=== PATIENT | female | born 1960 | race Caucasian/White ===

== ENCOUNTER 2024-07-13 09:21 | Outpatient (AMB) | payer OTHER, SELFPAY ==
--- NOTE | 2024-07-13 09:24 | MHC.PC.OV ---
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 Accompanied by: Self / Same As Patient Allergies codeine Allergy (Unknown, Verified 07/13/24 09:25) Unknown Tobacco use date assessed: 07/13/24 Fall risk assessment: No Falls in past year Last assessed Fall Risk: 07/13/24 Dental Screening Dental Screen Date: 07/13/24 Did you have a dental visit in the last 12 months?: Yes Did you have a dental problem in the last 6 months where you did not have access to dental care?: No HPI HPI Comments History of Present Illness Details The patient is a 63 year old female with a past medical history of abnormal tft, hypothyroid, hyperlipidemia, cervicalgia, OA, hld presenting for follow up Increased neck and low back pain. Requesting xrays. is a chiropractor. OA multiple joints. Sees Dr St[facility] History of osteopenia. Takes vitamin D and calcium Colonoscopy 2023 Sees collision worker. Mammo utd ROS CONSTITUTIONAL: Denies weight loss, fever and chills. HEENT: Denies changes in vision and hearing. RESPIRATORY: Denies SOB and cough. CV: Denies palpitations and CP GI: Denies abdominal pain, nausea, vomiting and diarrhea. : Denies dysuria and urinary frequency. MSK: Denies new myalgia and joint pain. SKIN: Denies rash and pruritus. NEUROLOGICAL: Denies headache PSYCHIATRIC: Denies recent changes in mood. PHYSICAL EXAM: GENERAL: Alert and oriented x 3. NAD EYES: EOMI. Anicteric. HENT: Moist mucous membranes. No scleral icterus. No cervical lymphadenopathy. LUNGS: Clear to auscultation bilaterally. CARDIOVASCULAR: Regular rate and rhythm. No murmur. No JVD. ABDOMEN: Soft, non-tender +bs EXTREMITIES: No edema. Non-tender. SKIN: No rashes or lesions. Warm. NEUROLOGIC: No focal neurological deficits. CN II-XII grossly intact PSYCHIATRIC: Cooperative. Appropriate mood and affect [facility] Family History Mother No problems noted. Father No problems noted. Social History Housing: House Patient Tobacco Use Status: Never used Tobacco e-Cigarette/Vaping Use: Never Used service: No Current occupational status: employed Cognitive needs: No Hearing needs: No Vision needs: Yes (rx glasses) Questionnaire PHQ-9 Over the last 2 weeks, how often have you been bothered by any of the following problems? 1. Little interest or pleasure in doing things: not at all 2. Feeling down, depressed, or hopeless: not at all 3. Trouble falling or staying asleep, or sleeping too much: not at all 4. Feeling tired or having little energy: not at all 5. Poor appetite or overeating: not at all 6. Feeling bad about yourself - or that you are a failure or have let yourself or your family down: not at all 7. Trouble concentrating on things, such as reading the newspaper or watching television: not at all 8. Moving or speaking so slowly that other people could have noticed. Or the opposite - being so fidgety or restless that you have been moving around a lot more than usual: not at all 9. Thoughts that you would be better off or of hurting yourself in some way: not at all Total score: 0 Depression Screening Interpretation: Negative Depression Screening Done: Yes [id number] - PHQ-9 Billing: Yes Source: Developed by Drs. Trell Zheng, Jazlyn Tran, Fazal Whitt and colleagues, with an educational tiki from [employer]. Thrive Questionnaire Date Thrive assessed: 07/13/24 I am a: Patient Within the past 12 months, did the food you bought not last and you didn't have the money to get more?: Never true Within the past 12 months, did you worry whether your food would run out before you got money to buy more?: Never true Do you have trouble paying for medicines?: No Do you have trouble getting transportation to medical appointments?: No Do you have trouble paying your heating and electricity bill?: No Do you have trouble taking care of your child, family member or friend?: No Do you have trouble with day-to-day activities such as bathing, preparing meals, shopping, managing finances, etc.?: No Are you currently unemployed and looking for a job?: No Are you interested in more education?: No THRIVE Score: 0 AUDIT C Alcohol Use Questionnaire (AUDIT-C) 1. How often do you have a drink containing alcohol?: Monthly or less 2. How many drinks containing alcohol do you have on a typical day when you are drinking?: 1 or 2 3. How often do you have six or more drinks on one occasion?: Less than monthly Total Score: 2 JESUS-7 AMB Questionnaire JESUS-7 Date JESUS - 7 assessed: 07/13/24 Feeling nervous, anxious, or on edge: 0 = Not at all Not being able to stop or control worryin = Not at all Worrying too much about different things: 0 = Not at all Trouble relaxin = Not at all Being so restless that it is hard to sit still: 0 = Not at all Becoming easily annoyed or irritable: 0 = Not at all Feeling afraid as if something awful might happen: 0 = Not at all Total JESUS-7 score (0-4 normal; 5-9 mild; 10-14 moderate; 15-21 severe): 0 Source: Developed by Drs. Trell Zheng, Jazlyn Tran, Fazal Whitt and colleagues, with an educational tiki from [employer]. Physical exam (Primary Care) Vital Signs: Last Vital Signs Temp 97.5 F 07/13/24 09:25 Pulse 69 07/13/24 09:25 BP 122/70 07/13/24 09:25 Pulse Ox 99 07/13/24 09:25 Oxygen Delivery Method Room Air 07/13/24 09:25 BMI result Body Mass Index 23.4 Tobacco/Smoking Status: Tobacco use Status Tobacco use date assessed 07/13/24 07/13/24 09:27 Patient Tobacco Use Status Never used Tobacco 07/13/24 09:27 e-Cigarette/Vaping Use Never Used 07/13/24 09:27 PHQ-9: PHQ-9 Score PHQ-9: Total score 0 07/13/24 09:27 Depression Screening Interpretation: Negative Thrive Assessment: Date of Thrive Assessment Date Thrive assessed 07/13/24 07/13/24 09:34 Coding Level of Care Code New Pt Level 4 (86759) Complex EM visit Add On G2211 Diagnoses Screening for metabolic disorder Z13.228 Screening for hyperlipidemia Z13.220 Screening for deficiency anemia Z13.0 Bilateral low back pain without sciatica, unspecified chronicity M54.50 Chronicity: unspecified Back pain laterality: bilateral Sciatica presence: without sciatica Neck pain M54.2 Additional Codes PHQ-9 - 62671 - PHQ-9 Billing: Yes ([id number]) Assessment & Plan Assessment & Plan (1) Screening for metabolic disorder: Code(s): Z13.228 - Encounter for screening for other metabolic disorders Category: Medical (2) Screening for hyperlipidemia: Code(s): Z13.220 - Encounter for screening for lipoid disorders Category: Medical (3) Screening for deficiency anemia: Code(s): Z13.0 - Encounter for screening for diseases of the blood and blood-forming organs and certain disorders involving the immune mechanism Category: Medical (4) Low back pain: Code(s): M54.50 - Low back pain, unspecified Category: Medical Qualifiers: Chronicity: unspecified Back pain laterality: bilateral Sciatica presence: without sciatica Qualified Code(s): M54.50 - Low back pain, unspecified (5) Neck pain: Code(s): M54.2 - Cervicalgia Category: Medical Plan 64 to establish care Past medical , surgical, social & family reviewed No rx meds Labs ordered. Xrays ordered Orders: Orders XR cervical spine 4V Today M54.2 - Cervicalgia XR lumbar spine 2-3V Today M54.2 - Cervicalgia, M54.50 - Low back pain, unspecified Complete Blood Count Auto Diff Today M54.2 - Cervicalgia, M54.50 - Low back pain, unspecified, Z13.0 - Encounter for screening for diseases of the blood and blood-forming organs and certain disorders involving the immune mechanism, Z13.220 - Encounter for screening for lipoid disorders, Z13.228 - Encounter for screening for other metabolic disorders Comprehensive Met. Panel Today M54.2 - Cervicalgia, M54.50 - Low back pain, unspecified, Z13.0 - Encounter for screening for diseases of the blood and blood-forming organs and certain disorders involving the immune mechanism, Z13.220 - Encounter for screening for lipoid disorders, Z13.228 - Encounter for screening for other metabolic disorders Lipid Panel Today M54.2 - Cervicalgia, M54.50 - Low back pain, unspecified, Z13.0 - Encounter for screening for diseases of the blood and blood-forming organs and certain disorders involving the immune mechanism, Z13.220 - Encounter for screening for lipoid disorders, Z13.228 - Encounter for screening for other metabolic disorders Erythrocyte Sedimentation Rate Today M54.2 - Cervicalgia, M54.50 - Low back pain, unspecified, Z13.0 - Encounter for screening for diseases of the blood and blood-forming organs and certain disorders involving the immune mechanism, Z13.220 - Encounter for screening for lipoid disorders, Z13.228 - Encounter for screening for other metabolic disorders TSH reflex Free T4 Today M85.80 - Other specified disorders of bone density and structure, unspecified site, R94.6 - Abnormal results of thyroid function studies Rheumatoid Factor Today M54.2 - Cervicalgia, M54.50 - Low back pain, unspecified, Z13.0 - Encounter for screening for diseases of the blood and blood-forming organs and certain disorders involving the immune mechanism, Z13.220 - Encounter for screening for lipoid disorders, Z13.228 - Encounter for screening for other metabolic disorders Lyme IgG/IgM w/reflex to WB Today M54.2 - Cervicalgia, M54.50 - Low back pain, unspecified, Z13.0 - Encounter for screening for diseases of the blood and blood-forming organs and certain disorders involving the immune mechanism, Z13.220 - Encounter for screening for lipoid disorders, Z13.228 - Encounter for screening for other metabolic disorders Vitamin D 25-OH (D2 and D3) Today M85.80 - Other specified disorders of bone density and structure, unspecified site, R94.6 - Abnormal results of thyroid function studies
[2024-07-13 09:25] VITALS: BP 122/70; PULSE 69; TEMP 36.4; O2SAT 99; BMI 23.4
--- OUTSIDE RECORDS SUMMARY | 2024-07-13 09:44 | XMS_ITS | Clinical Summary ---
Author Organization [facility] Address [address] [place] [address] Phone Care Team Providers Care Check And Transfer Beader Name Role Phone Unavailable Primary Care Provider Unavailabl e Social History Tobacco Use Types Packs/Day Years Used Date Smoking Tobacco: Never Assessed Comments Unknown Sex and Gender Information Value Date Recorded Sex Assigned at Not on file Legal Sex Female 8:12 PM EST Gender Identity Not on file Sexual Orientation Not on file Plan of Treatment Health Maintenance Due Date Last Done Comments DTaP,Tdap,and Td Vaccines (1 - Tdap) 1978 Cervical Cancer Screening: P ap Smear 1980 Pneumococcal Vaccine: 50+ Ye ars (1 of 1 - PCV) 2009 Zoster Vaccines (1 of 2) 2009 Breast Cancer Screening 04/12/2020 04/12/2018 COVID-19 Vaccine ( - 2023-2 5 season) 2023 Depression Screening 01/10/2024 Hepatitis C Screening 01/10/2024 Osteoporosis Screening (Bone Density Screening) 01/10/2024 Social Influencers of Health Screening 01/10/2024 Falls Risk Assessment 2024 Influenza Vaccine (Season Ended) 2024 Colorectal Cancer Screening: Colonoscopy 02/15/2034 02/16/2024 RSV Immunization Adult Patie nts (1 - 1-dose 75+ series) 2034 HIB Vaccines Aged Out No longer eligi ble based on patient's age to complete this topic HPV Vaccines Aged Out No longer eligi ble based on patient's age to complete this topic Hepatitis A Vaccines Aged Out No long er eligible based on patient's age to complete this topic Hepatitis B Vaccines Aged Out No long er eligible based on patient's age to complete this topic IPV Vaccines Aged Out No longer eligi ble based on patient's age to complete this topic MMR Vaccines Aged Out No longer eligi ble based on patient's age to complete this topic Meningococcal ACWY Vaccine Aged Out N o longer eligible based on patient's age to complete this topic Meningococcal B Vaccine Aged Out No l onger eligible based on patient's age to complete this topic Pneumococcal Vaccine: Pediat rics (0 to 5 Years) and At-Risk Patients (6 to 64 Years) Aged Out No longer eligi ble based on patient's age to complete this topic RSV Immunization Patients Un phyllis 20 months Aged Out No longer eligible b ased on patient's age to complete this topic Varicella Vaccines Aged Out No longer eligible based on patient's age to complete this topic Procedures Procedure Name Priority Date/Time Associated Diagnosis Comments COLONOSCOPY Routine 02/16/2024 9:23 AM EST JULIO C SCREENING DIGITAL Routine 04/12/2018 9:37 AM EST Encounter for screening mammogram for malignant neoplasm of breast from Last 3 Months or Most Recently Relevant to Health Maintenance Results * COLONOSCOPY (02/16/2024 9:23 AM EST) Anatomical Region Laterality Modality Endoscopy us Historical Provider GI~PROCEDURE ORDERABLES F inal Result * JULIO C SCREENING DIGITAL (04/12/2018 9:37 AM EST) Anatomical Region Laterality Modality Mammography 03/30/2018 10:0 4 AM EST Narrative 04/12/2018 9:37 AM EST [facility] Diagnostic Imaging Department [address] [place] [address] Patient: ??MIRZA BUTTERFIELD ?/Age/Sex: 1960 - 58 - F Unit#: ??[id number] ? Location/Status: ??SPDIMAM/REG CLI ? Mnemonic/Ordering Site: ??DIGSC/SPMAM Ordering Physician: ??CIRILO POMPA MD Julio C Screening Digital - 03/30/18 - 1024 ADDENDUM Patient is unable to return to [facility] for diagnostic mammography due to insurance constraints. Follow-up imaging obtained at [facility]. Findings reportedly reassuring with follow-up recommended to document stability (BI-RADS Category 3). Addendum Dictated By: ??SHARAD GAINES MD Addendum Esigned by: SHARAD GAINES MD Dictated: 04/12/1812/22/935 Signed:04/12/18936 ORIGINAL REPORT History: Breast cancer screening. Technique: ?? Bilateral digital mammography. Conventional CC and MLO projections with tomosynthesis MLO views and computer aided detection. Comparison: [facility] 03/11/2017, 03/21/2016, 01/14/2016, 10/30/2014 and multiple preceding studies dating back to 2004. Findings: ?? Breast tissue consists of mostly fatty tissue, category a density. Oval 4.5 mm discrete asymmetry within the central right breast just lateral to the nipple line as revealed on CC projection represents a new finding. No definite change, however, noted in the MLO projection. Stable anterior subareolar asymmetries. Mid right breast asymmetry projecting just below the nipple line on tomography is also identified on previous tomography. No architectural distortion, suspicious grouping of calcification within either breast or new asymmetry on the left. Impression: 4.5 mm rounded asymmetry central right breast as revealed on CC projection is incompletely evaluated. Recommend diagnostic mammography to include spot compression view right cc projection centered over area of concern as well as CC projection tomography. Patient will be contacted directly to arrange for supplementary imaging. BIRADS Category 0: Incomplete. Needs further imaging evaluation, 3340F [id number], [address]26 Patient information entered into a reminder system with a target date for the next mammogram. PQRI [id number] Dictating Physician: ??SHARAD GAINES MD Electronically Signed by: ??SHARAD GAINES MD Dic Date/Time: ??03/30/18 1633 Sign date/Time: ??03/30/18 9762 Procedure Note Sharad Gaines MD - 03/24/2022 [facility] Diagnostic Imaging Department [address] [place] [address] Patient: MIRZA BUTTERFIELD Hayden OrrB./Age/Sex: 1960 - 58 - F Unit#: [id number] [facility] Ordering Physician: CIRILO POMPA MD Julio C Screening Digital - 03/30/18 - 1024 ADDENDUM Patient is unable to return to [facility] for diagnosticmammography due to insurance constraints. Follow-up imaging obtained at [facility]. Findings reportedly reassuring with follow-up recommended todocument stability (BI-RADS Category 3). Addendum Dictated By: SHARAD GAINES MD Addendum Esigned by: SHARAD GAINES MD Dictated: 04/12/1812/22/935 Signed:04/12/18936 ORIGINAL REPORT History: Breast cancer screening. Technique: Bilateral digital mammography. Conventional CC and MLOprojections with tomosynthesis MLO views and computer aided detection. Comparison: [facility] 03/11/2017, 03/21/2016, 01/14/2016,10/30/2014 and multiple preceding studies dating back to 2004. Findings: Breast tissue consists of mostly fatty tissue, category adensity. Oval 4.5 mm discrete asymmetry within the central right breast justlateral to the nipple line as revealed on CC projection represents a new finding.No definite change, however, noted in the MLO projection. Stable anterior subareolar asymmetries. Mid right breast asymmetry projecting just belowthe nipple line on tomography is also identified on previous tomography. No architectural distortion, suspicious grouping of calcification withineither breast or new asymmetry on the left. Impression: 4.5 mm rounded asymmetry central right breast as revealed onCC projection is incompletely evaluated. Recommend diagnostic mammographyto include spot compression view right cc projection centered over area ofconcern as well as CC projection tomography. Patient will be contacted directly to arrange for supplementary imaging. BIRADS Category 0: Incomplete. Needs further imaging evaluation, 3340F [id number], [address]221 Patient information entered into a reminder system with a target date forthe next mammogram. PQRI [id number] Dictating Physician: SHARAD GAINES MD Electronically Signed by: SHARAD GAINES MD Dic Date/Time: 03/30/18 1635 Sign date/Time: 03/30/18 1639 Cirilo Pompa MD IMG BI PROCEDURES Final Resul t from Last 3 Months or Most Recently Relevant to Health Maintenance Insurance [facility]
== END 2024-07-13 10:12 | disposition home or self-care (01) ==
PROVIDERS: PCP Internal Medicine; Visit Provider Internal Medicine
DX: Z13.228 Encounter for screening for other metabolic disorders (principal); Z13.220 Encounter for screening for lipoid disorders; Z13.0 Encounter for screening for diseases of the blood and blood-forming organs and certain disorders involving the immune mechanism; M54.50 Low back pain, unspecified; M54.2 Cervicalgia

== ENCOUNTER → 2024-07-13 09:21 | Outpatient (BNVA) | payer OTHER, SELFPAY | PROVIDERS: PCP Internal Medicine; Visit Provider Internal Medicine | DX: M54.50 Low back pain, unspecified (principal); M54.2 Cervicalgia; E03.9 Hypothyroidism, unspecified; E78.5 Hyperlipidemia, unspecified | CPT/HCPCS: 96127 ==